=== PATIENT | female | born 1960 | race Two or more races ===

== ENCOUNTER 2025-08-01 20:23 | Emergency (ER) | payer MEDICARE, MEDICAID ==
[~2025-08-01] VITALS: Ht 175.3 cm; Wt 60.0 kg
--- NOTE | 2025-08-01 20:50 | ED.PDOC ---
History of Present Illness HPI Comments 65-year-old female who came to ER via EMS for vaginal bleeding. [facility], has been having vaginal bleeding for the past 3 days. Denies any other symptoms. Does have history of dementia and bipolar disorder REVIEW OF SYSTEMS: General: No fever, no chills, or fatigue HEENT: No sore throat, no earache, no congestion, no neck pain. Cardiac: No chest pain. No palpitations. Lungs: No shortness of breath, no cough. GI: No nausea, no vomiting, no diarrhea, no constipation, no abdominal pain : No dysuria, frequency, or urgency. No hematuria. (+) vaginal bleeding Musculoskeletal: No joint pain , no joint swelling, no extremity edema. Skin: No rash, no itching. Neuro: No headache, no dizziness, no weakness EXAM: General: Awake, alert and oriented. No acute distress. Skin: Skin in warm, dry and intact. Appropriate color for ethnicity. HEENT: The head is normocephalic and atraumatic. Conjunctivae are clear without exudates or hemorrhage. Sclera is non-icteric. EOM are intact. No signs of nystagmus. Eyelids are normal in appearance without swelling or lesions. Oral mucosa is pink and moist Neck: The neck is supple with normal range of motion. No JVD. Cardiac: Heart rate and rhythm are normal. No murmurs, gallops, or rubs are auscultated. Respiratory: No signs of respiratory distress. Lung sounds are clear in all lobes bilaterally without rales, rhonchi, or wheezes. Abdominal: Abdomen is soft, non-tender without distention. Bowel sounds are present and normoactive in all four quadrants. Extremities: Upper and lower extremities are atraumatic in appearance without deformity or edema. Neurological: The patient is awake, alert and oriented to person, place, and time with normal speech. Speech is clear. There is no facial asymmetry. Psychiatric: Appropriate mood and affect. Good judgement and insight Chief Complaint: Vaginal Bleed Time Seen by MD: 20:49 Reviewed Notes: Network Technician Notes Allergies: Coded Allergies: NO KNOWN ALLERGIES (Unverified , 08/01/25) Information Source: Patient, Emergency Med Personnel Mode of Arrival: EMS Past Medical History PAST MEDICAL HISTORY: Dementia Past Medical History (Other): Bipolar disorder Surgical History: Denies all surgeries ATTENUATOR History: Denies all ATTENUATOR Hx Family History Family History: Reviewed,noncontributory to illness Social History Smoker: Non-Smoker Alcohol: Denies ETOH Use Drugs: Denies Drug Use Lives In: [facility] Was a procedure done? Was a procedure done?: No Differential Dx Considerations may include: Vaginal bleeding, anemia, endometriosis X-Ray, Labs, Meds, VS Vital Signs Date Time Temp Pulse Resp B/P (MAP) Pulse Ox O2 Delivery O2 Flow Rate FiO2 08/01/25 20:23 98.7 84 18 105/73 99 98.7 Lab Test 08/01/25 20:45 Range/Units White Blood Count 9.9 4.4-10.8 10^3/uL Red Blood Count 4.34 4.0-5.20 10^6/uL Hemoglobin 14.0 12.2-16.2 g/dL Hematocrit 40.5 36.0-46.0 % Mean Corpuscular Volume 93.4 80.0-100.0 fL Mean Corpuscular Hemoglobin 32.2 H 28.0-32.0 pg Mean Corpuscular Hemoglobin Concent 34.5 32.0-36.0 g/dL Red Cell Distribution Width 14.1 11.8-14.3 % Platelet Count 404 140-450 10^3/uL Mean Platelet Volume 7.9 6.9-10.8 fL Neutrophils (%) (Auto) 52.2 37.0-80.0 % Lymphocytes (%) (Auto) 37.2 10.0-50.0 % Monocytes (%) (Auto) 9.1 0.0-12.0 % Eosinophils (%) (Auto) 0.5 0.0-7.0 % Basophils (%) (Auto) 1.0 0.0-2.0 % Neutrophils # (Auto) 5.2 1.6-8.6 10 ^3/uL Lymphocytes # (Auto) 3.7 0.4-5.4 10 ^3/uL Monocytes # (Auto) 0.9 0-1.3 10 ^3/uL Eosinophils # (Auto) 0 0-0.8 10 ^3/uL Basophils # (Auto) 0.1 0-0.2 10 ^3/uL Nucleated Red Blood Cells 0.1 % Sodium Level 131 L 136-145 mmol/L Potassium Level 4.1 3.5-5.1 mmol/L Chloride Level 98 98-107 mmol/L Carbon Dioxide Level 22 20-31 mmol/L Anion Gap 11 5-15 Blood Urea Nitrogen 13 9-23 mg/dL Creatinine 0.56 0.550-1.02 mg/dL Glomerular Filtration Rate Calc 101 >90 mL/min BUN/Creatinine Ratio 23.2 H 10.0-20.0 Serum Glucose 102 74-106 mg/dL Calcium Level 9.3 8.7-10.4 mg/dL Time of 1ST Reevaluation: 20:46 Reevaluation 1ST: Unchanged Patient Education/Counseling: Need For Follow Up Family Education/Counseling: No Family Present SEPSIS Sepsis Screen Physician Orders Urinalysis (08/01/25 20:38) Pelvic (08/01/25 20:38) Vital Signs Date Time Temp Pulse Resp B/P (MAP) Pulse Ox O2 Delivery O2 Flow Rate FiO2 08/01/25 20:23 98.7 84 18 105/73 99 98.7 Laboratory Tests Test 08/01/25 20:45 White Blood Count 9.9 10^3/uL (4.4-10.8) Departure 1 Departure Time of Disposition: 22:42 Impression: Primary Impression: Abnormal vaginal bleeding Additional Impression: Hyponatremia Disposition: HOME / SELF CARE / HOMELESS Condition: Stable Additional Instructions: Follow up with Gynecology. Comments 65-year-old female, postmenopausal with vaginal bleeding. H&H and vital signs stable in the emergency department. Ultrasound shows no acute process. Patient advised to follow up with Gynecology promptly for further evaluation. SHe will be discharged back to [facility] Critical Care Note Critical Care Time?: No Stability Stability form required: No Heart Score Heart Score: Heart Score Response (Comments) Value History N/A 0 EKG N/A 0 Age N/A 0 Risk Factors N/A 0 Troponin N/A 0 Total 0 I personally scribed for GLORY MORALES MD ([email or web address]) on 08/01/25 at 20:49. Electronically submitted by David Lora ([email or web address]). GLORY MORALES MD Aug 01, 2025 20:49
[2025-08-01 21:11] LABS: Hematocrit 40.5 % (36.0-46.0); Hemoglobin 14.0 g/dL (12.2-16.2); Mean Corpuscular Hemoglobin 32.2 pg (28.0-32.0); Mean Corpuscular Volume 93.4 fL (80.0-100.0); Nucleated Red Blood Cells % 0.1 %
[2025-08-01 21:21] LABS: Potassium 4.1 mmol/L (3.5-5.1)
[2025-08-01 21:22] LABS: Anion Gap 11 (5-15); Calcium 9.3 mg/dL (8.7-10.4); Carbon Dioxide 22 mmol/L (20-31)
[2025-08-01 21:27] LABS: BUN/Creatinine Ratio 23.2 (10.0-20.0); Blood Urea Nitrogen 13 mg/dL (9-23); Glucose 102 mg/dL (74-106)
[2025-08-01 21:29] LABS: Chloride 98 mmol/L (98-107); Sodium 131 mmol/L (136-145)
--- NOTE | 2025-08-01 21:30 | DVH ---
EXAM: US PELVIC HISTORY: Vaginal bleeding COMPARISON: None TECHNIQUE: Transabdominal imaging was utilized. Grayscale and color doppler evaluation. Images were stored in the patient's permanent medical record. FINDINGS: Extremely limited examination Uterus and ovaries are not well visualized OTHER: No free fluid is identified. IMPRESSION: 1. Limited examination with nonvisualization of the uterus and ovaries. 2. Patient declined transvaginal examination.
[2025-08-01] MEDS: MORPHINE SULFATE INJ 2 MG/ml SYRG IM ONE (23:00)
[2025-08-01] MEDS: SODIUM CHLORIDE 0.9% 1,000 ML IV ONE (23:59)
[2025-08-02 02:41] VITALS: BP 141/71; PULSE 78; RESP 19; TEMP 98.6; O2SAT 97
== END 2025-08-01 23:59 | disposition home or self-care (01) ==
LOC: EDBD 20:23 → ER 20:23
DX: N93.9 Abnormal uterine and vaginal bleeding, unspecified (principal); E87.1 Hypo-osmolality and hyponatremia; F03.93 Unspecified dementia, unspecified severity, with mood disturbance; F31.9 Bipolar disorder, unspecified
CPT/HCPCS: 36415; 76856; 80048; 85025